=== PATIENT | female | born 1995 | race Caucasian/White ===

== ENCOUNTER 2016-03-25 08:58 | Emergency (ER) | payer OTHER ==
[~2016-03-25] VITALS: Ht 157.5 cm; Wt 68.0 kg
[~2016-03-25 08:58] MED LIST: ACYC400T PO; AUGM875T PO; DIFL150T PO; VITA-13 PO
[2016-03-25 09:02] VITALS: BP 108/69; PULSE 88; RESP 16; TEMP 99.7; O2SAT 98
[2016-03-25] MEDS ORDERED: SODIUM CHLORIDE 0.9% FLUSH 5 ML FLUSH IVF PRN (09:15)
[2016-03-25] MEDS ORDERED: SODIUM CHLOR 0.9% 1000 ML INJ 1,000 ML IV SCH (09:15)
[2016-03-25 09:17] VITALS: BP 135/61; PULSE 84; RESP 20; TEMP 98.8; O2SAT 99
[2016-03-25 09:46] LABS: AUTOMATED NEUTROPHIL # 4.9 TH/MM3 (1.8-7.7); BASOPHIL % 0.3 % (0.0-2.0); EOSINOPHIL # 0.3 TH/MM3 (0-0.4); EOSINOPHIL % 3.4 % (0.0-4.0); HEMATOCRIT 39.8 % (35.0-46.0); HEMO FLAGS DIFF FINAL; LYMPH % 24.3 % (9.0-44.0); LYMPHOCYTE # 1.8 TH/MM3 (1.0-4.8); MEAN CELL VOLUME 81.1 FL (80.0-100.0); MEAN CORPUSCULAR HEMOGLOBIN 26.5 PG (27.0-34.0); MEAN CORPUSCULAR HGB CONC 32.7 % (32.0-36.0); MONO % 6.1 % (0.0-8.0); NEUT % 65.9 % (16.0-70.0); PLATELET COUNT 218 TH/MM3 (150-450); RED CELL DISTRIBUTION WIDTH 16.1 % (11.6-17.2); WHITE BLOOD COUNT 7.5 TH/MM3 (4.0-11.0)
[2016-03-25 09:49] LABS: BLOOD, URINE MOD (NEG); GLUCOSE,URINE NEG (NEG); KETONE, URINE NEG (NEG); MUCUS URINE FEW /lpf (OCC); NITRITE,URINE NEG (NEG); RENAL EPITHELIAL CELLS <1 /hpf; SQUAMOUS EPITHELIAL CELL URINE 46 /hpf (0-5); URINE COLOR YELLOW (YELLW/STRAW)
[2016-03-25 09:51] LABS: COMMENT (UR) CULT NOT INDICATED; CULTURE IF INDICATED CULT NOT INDICATED
[2016-03-25 10:10] LABS: ANION GAP 9 MEQ/L (5-15); AST (GOT) 12 U/L (16-38); BICARBONATE 22.7 MEQ/L (21.0-32.0); BLOOD UREA NITROGEN 5 MG/DL (7-18); CHLORIDE 104 MEQ/L (98-107); GLOMERULAR FILTRATION RATE 135 ML/MIN (>89); POTASSIUM 3.9 MEQ/L (3.5-5.1); SODIUM (NA) 136 MEQ/L (136-145)
--- NOTE | 2016-03-25 10:11 | PD ---
HPI Chief Complaint: Abdominal Pain Time Seen by Provider: 09:09 Travel History International Travel<30 days: No Contact w/Intl Traveler<30days: No Traveled to known affect area: No History of Present Illness HPI 20-year-old female states that she's been having central abdominal pain over the past couple of weeks. She came in today As it got worse. She states her last menstrual cycle was February 16. Quality pain is crampy. Severity is moderate. She denies migration of pain. She denies other significant complaints. She states that she could be but has not taken a test. PFSH Past Medical History ADHD: Yes Anxiety: Yes Depression: Yes Cancer: No Cardiovascular Problems: No Diabetes: No Diminished Hearing: No Gastrointestinal Disorders: Yes GERD: Yes Genitourinary: Yes (UTI ) Headaches: No Psychiatric: Yes (history of ADHD and Depression) Respiratory: Yes (Environmental Allergies per pt.) Immunizations Current: No Migraines: No Pancreatitis: Yes Seizures: No Ulcer: Yes ( ) ?: Unknown LMP: FEB 16 : 0 Para: 0 Miscarriage: 0 : 0 Past Surgical History Surgical History: No Previous Surgery Social History Alcohol Use: Yes Tobacco Use: No Substance Use: Yes (Marijuana) Allergies-Medications (Allergen,Severity, Reaction): Coded Allergies: No Known Allergies (Unverified , 07/31/15) Per [facility] Pharmacist. Reported Meds & Prescriptions Reported Meds & Active Scripts Active Review of Systems Except as stated in HPI: all other systems reviewed are Neg Physical Exam Narrative GENERAL: Well-nourished, well-developed patient. Well-appearing SKIN: Warm and dry. HEAD: Normocephalic and atraumatic. EYES: No injection or drainage. ENT: No nasal drainage noted. NECK: Supple, trachea midline. CARDIOVASCULAR: Regular rate and rhythm RESPIRATORY: No increased effort. No accessory muscle use. GASTROINTESTINAL: Abdomen soft, mild tenderness diffusely, nondistended. NEUROLOGICAL: Awake and alert. Motor and sensory grossly within normal limits. Normal speech. Data Data Last Documented VS Vital Signs Date Time Temp Pulse Resp B/P Pulse Ox O2 Delivery O2 Flow Rate FiO2 03/25/16 09:17 98.8 84 20 135/61 99 03/25/16 09:02 Room Air Orders Beta Hcg (Quant/Titer) (03/25/16 09:15) Complete Blood Count With Diff (1/25/17 09:15) Comprehensive Metabolic Panel (03/25/16 09:15) Lipase (03/25/16 09:15) Urinalysis - C+S If Indicated (03/25/16 09:15) Iv Access Insert/Monitor (03/25/16 09:15) Ecg Monitoring (03/25/16 09:15) Oximetry (03/25/16 09:15) Sodium Chlor 0.9% 1000 Ml Inj (Ns 1000 M (03/25/16 09:15) Sodium Chloride 0.9% Flush (Ns Flush) (03/25/16 09:15) Ed Urine Pregnancytest Poc (03/25/16 09:15) Complete Rh (03/25/16 09:15) Us Pelvis (Ques Preg/Ectopic) (03/25/16 ) Labs Laboratory Tests Test 03/25/16 03/25/16 09:29 09:32 Urine Color YELLOW Urine Turbidity HAZY Urine pH 8.0 Urine Specific [place] 1.018 Urine Protein TRACE mg/dL Urine Glucose (UA) NEG mg/dL Urine Ketones NEG mg/dL Urine Occult Blood MOD Urine Nitrite NEG Urine Bilirubin NEG Urine Urobilinogen LESS THAN 2.0 MG/DL Urine Leukocyte Esterase NEG Urine RBC 2 /hpf Urine WBC 5 /hpf Urine Squamous Epithelial 46 /hpf Cells Urine Renal Epithelial Cells <1 /hpf Urine Mucus FEW /lpf Microscopic Urinalysis Comment CULT NOT INDICATED White Blood Count 7.5 TH/MM3 Red Blood Count 4.90 MIL/MM3 Hemoglobin 13.0 GM/DL Hematocrit 39.8 % Mean Corpuscular Volume 81.1 FL Mean Corpuscular Hemoglobin 26.5 PG Mean Corpuscular Hemoglobin 32.7 % Concent Red Cell Distribution Width 16.1 % Platelet Count 218 TH/MM3 Mean Platelet Volume 11.0 FL Neutrophils (%) (Auto) 65.9 % Lymphocytes (%) (Auto) 24.3 % Monocytes (%) (Auto) 6.1 % Eosinophils (%) (Auto) 3.4 % Basophils (%) (Auto) 0.3 % Neutrophils # (Auto) 4.9 TH/MM3 Lymphocytes # (Auto) 1.8 TH/MM3 Monocytes # (Auto) 0.5 TH/MM3 Eosinophils # (Auto) 0.3 TH/MM3 Basophils # (Auto) 0.0 TH/MM3 CBC Comment DIFF FINAL Differential Comment Sodium Level 136 MEQ/L Potassium Level 3.9 MEQ/L Chloride Level 104 MEQ/L Carbon Dioxide Level 22.7 MEQ/L Anion Gap 9 MEQ/L Blood Urea Nitrogen 5 MG/DL Creatinine 0.57 MG/DL Estimat Glomerular Filtration 135 ML/MIN Rate Random Glucose 86 MG/DL Calcium Level 8.6 MG/DL Total Bilirubin 0.7 MG/DL Aspartate Amino Transf 12 U/L (AST/SGOT) Alanine Aminotransferase 15 U/L (ALT/SGPT) Alkaline Phosphatase 61 U/L Total Protein 7.3 GM/DL Albumin 3.4 GM/DL Lipase 154 U/L Human Chorionic Gonadotropin, 72012 MIU/ML Quant Blood Type A POSITIVE Rho(D) Type POSITIVE MDM Medical Decision Making Medical Screen Exam Complete: Yes Emergency Medical Condition: Yes Medical Record Reviewed: Yes (past history confirmed) Interpretation(s) Rh is A+ CBC & BMP Diagram 03/25/16 09:32 Last 24 hours Impressions Pelvis Ultrasound 03/25/16 0000 Signed Impressions: Service Date/Time: Friday, March 25, 2016 11:12 - CONCLUSION: Apparent intrauterine gestational sac with yolk sac without pole measuring measuring 5 weeks 4 days. No free fluid normal ovaries. 7-10 day followup in the appropriate clinical situation recommended with possibility of blighted ovum not excludable Minh Barnard MD ua no signs of infection Differential Diagnosis Ectopic, stone, cyst, gastroenteritis... Narrative Course Will check blood work, urinalysis, and determine imaging after test Given positive beta will proceed with pelvic ultrasound patient updated and given copy of ultrasound report for follow-up.Patient denies any new complaints and states that they are feeling better. Patient happy with care, all questions answered. Patient knows that follow up is incumbent on them and to return to the emergency room immediately if new or worsening symptoms develop. Patient given strict return precautions, vitals reviewed and are normal, agrees to further workup as an outpatient. Diagnosis Primary Impression: Abdominal pain during Qualified Code: O26.891 - Abdominal pain during , first trimester Patient Instructions: General Instructions Additional Instructions: return as needed, follow with ob within one week, tylenol as needed Med/Other Pt SpecificInfo: No Change to Meds Disposition: 01 DISCHARGE HOME Condition: Stable Rosa Elena Will MD Mar 25, 2016 10:11
[2016-03-25 10:28] LABS: ALKALINE PHOSPHATASE 61 U/L (45-117); ALT (GPT) 15 U/L (9-42); BETA HCG QUANT 15175 MIU/ML (0-5); TOTAL BILIRUBIN ADULT 0.7 MG/DL (0.2-1.0)
--- NOTE | 2016-03-25 11:40 | RADRPT ---
EXAM DATE/TIME: 03/25/2016 11:12 [place] COMPARISON: No previous studies available for comparison. INDICATIONS : Pelvic pain. LAB(S): Beta-hC,175 MEDICAL HISTORY : . SURGICAL HISTORY : None. ENCOUNTER: Initial ACUITY: 2 weeks PAIN SCORE: 3/10 LOCATION: Bilateral pelvis MEASUREMENTS: UTERUS: 11.0 x 4.8 x 6.5 cm ENDOMETRIAL STRIPE: 19 mm RIGHT OVARY: 2.8 x 1.6 x 1.9 cm LEFT OVARY: 2.8 x 1.7 x 2.1 cm FINDINGS: There is a cystic area in the endometrium with an apparent young sac gestational age approximately 5 weeks 4 days and no pole is visualized. CM performed transabdominally with the patient refusing transvaginal study. Ovaries appear normal with no evidence of free fluid. CONCLUSION: Apparent intrauterine gestational sac with yolk sac without pole measuring measuring 5 weeks 4 days. No free fluid normal ovaries. 7-10 day followup in the appropriate clinical situation recommend ed with possibility of blighted ovum not excludable Minh Barnard MD on March 25, 2016 at 11:36 Board Certified Radiologist. This report was verified electronically.
== END 2016-03-25 13:09 | disposition home or self-care (01) ==
LOC: NEPE 08:58
DX: O26.891 Other specified pregnancy related conditions, first trimester (principal); R10.9 Unspecified abdominal pain
CPT/HCPCS: 76700; 80053; 81001; 83690; 84702; 84703; 85025; 86901; 99284; J7030

== ENCOUNTER 2016-09-25 10:20 | Emergency (ER) | payer OTHER ==
--- NOTE | 2016-09-25 11:23 | PD ---
HPI Chief Complaint 20-year-old primigravida at 31-4/7 weeks' gestation who presents with dizziness. Patient states that over the past couple of weeks she has had problems with feeling dizzy when she changes position from sitting to standing. She denies any syncopal episodes. She has been having some problems with diarrhea once daily for a couple of weeks. 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 Also currently under treatment for UTI on Keflex now for 4 days. She states her symptoms related to her UTI are improved. She denies any leakage of fluid, bleeding or contractions. She reports good movement. Date Seen: Sep 25, 2016 Time Seen: 11:00 Travel History International Travel<30 Days: No Contact w/Intl Traveler<30Days: No Known Affected Area: No History of Present Illness Para: 0 : 1 Miscarriage: 0 : 0 History Past Medical History Narrative Medical History of HSV History of depression Past Surgical History Surgical History: No Previous Surgery Family History Family History: Negative Social History Alcohol Use: No Tobacco Use: No Substance Abuse: Yes (THC positive) Allergies-Medications (Allergen,Severity, Reaction): Coded Allergies: No Known Allergies (Unverified , 07/31/15) Per [facility] Pharmacist. Review of Systems Except as stated in HPI: all other systems reviewed are Neg Physical Exam Narrative GENERAL: Well-nourished, well-developed patient. SKIN: Warm and dry. HEAD: Normocephalic and atraumatic. EYES: No scleral icterus. No injection or drainage. ENT: No nasal drainage noted. Mucous membranes pink. Airway patent. NECK: Supple, trachea midline. No JVD. CARDIOVASCULAR: Regular rate and rhythm without murmurs, gallops, or rubs. RESPIRATORY: Breath sounds equal bilaterally. No accessory muscle use. ABDOMEN/GI: Abdomen soft, non-tender, bowel sounds present, no rebound, no guarding Gravid to [-] weeks size Fundal Height: [-31] GENITOURINARY: External Genitalia: intact and normal in appearance Membranes: [intact ] Uterine Contractions: [No-] FHT's: Category: [-1] Baseline: [-] Reactive: [Yes-] Variability: [-] Decels: [-] EXTREMITIES: No cyanosis or edema. BACK: Nontender without obvious deformity. No CVA tenderness. NEUROLOGICAL: Awake and alert. Motor and sensory grossly within normal limits. Five out of 5 muscle strength in all muscle groups. Normal speech. Data Data Orders Vital Signs (Adult) .ON ADMISSION (09/25/16 11:03) ^ Labor Status (09/25/16 11:03) ^ Hydration (09/25/16 11:03) MDM Medical Record Reviewed: Yes Narrative Course / MDM Assessment: 31 week intrauterine with dizziness secondary to relative chronic dehydration Plan: Oral hydration was discussed with the patient. Recommend she continue her Keflex as ordered. Follow-up is scheduled with Dr. Charles. Diagnosis Diagnosis: Primary Impression: 31 weeks gestation of Disposition: DISCHARGE HOME Condition: Good Marc Orlando MD Sep 25, 2016 11:23
== END 2016-09-25 11:32 | disposition home or self-care (01) ==
LOC: HOBED 10:20
DX: O99.283 Endocrine, nutritional and metabolic diseases complicating pregnancy, third trimester (principal); E86.0 Dehydration; Z3A.31 31 weeks gestation of pregnancy
CPT/HCPCS: 99283

== ENCOUNTER 2016-10-14 19:50 | Emergency (ER) | payer OTHER ==
[2016-10-14] VITALS (28 sets, daily range): BP systolic 101; BP diastolic 64; PULSE 84–109
[2016-10-14] MEDS ORDERED: LACTATED RINGER'S 1000 ML INJ 1,000 ML IV SCH (20:37)
--- NOTE | 2016-10-14 20:45 | PD ---
HPI Chief Complaint Pelvic pressure and low back pain Date Seen: Oct 14, 2016 Travel History International Travel<30 Days: No Contact w/Intl Traveler<30Days: No Known Affected Area: No History of Present Illness HPI Patient is a 20-year-old black female at 34 weeks 2 days who is followed by Dr. Charles for care. She states that for the last 3-4 hours she' s had increasing pelvic pressure and low back pain. She denies bleeding or leakage of fluid. heart rate tracing is reactive. She is nick every 2 minutes Para: 0 : 1 History Social History Alcohol Use: No Tobacco Use: No Substance Abuse: No Allergies-Medications (Allergen,Severity, Reaction): Coded Allergies: No Known Allergies (Unverified , 07/31/15) Per [facility] Pharmacist. Review of Systems General / Constitutional: No: Fever, Weight Gain, Chills, Other Eyes: No: Diploplia, Blurred Vision, Visual changes, Pain, Photophobia HENT: No: Headaches, Vertigo, Lightheadedness Cardiovascular: No: Irregular Rhythm, Chest Pain or Discomfort, Palpitations, Tachycardia, Syncope, Varicosities, Edema, Cyanosis Respiratory: No: Cough, Short of Breath, Other Gastrointestinal: Abdominal Pain, No: Nausea, Vomiting, Diarrhea Genitourinary: No: Decreased Urinary Output, Oliguria Musculoskeletal: No: Limited ROM, Weakness, Cramping, Edema, Pain Skin: No Rash, No Itching, No Dryness, No Lumps, No Change in Pigmentation, No Change in Nails, No Alopecia, No Lesions Neurologic: No: Weakness, Dizziness, Syncope, Focal Abnormalities, Coordination Problem, Headache, Slurred Speech, Seizures Psychiatric: No: Depression, Suicidal Ideations, Homicidal Ideation Endocrine: No: Heat Intolerance, Cold Intolerance, Polydipsia, Polyuria, Other Physical Exam Narrative GENERAL: Well-nourished, well-developed patient. SKIN: Warm and dry. HEAD: Normocephalic and atraumatic. EYES: No scleral icterus. No injection or drainage. ENT: No nasal drainage noted. Mucous membranes pink. Airway patent. NECK: Supple, trachea midline. No JVD. CARDIOVASCULAR: Regular rate and rhythm without murmurs, gallops, or rubs. RESPIRATORY: Breath sounds equal bilaterally. No accessory muscle use. BREASTS: Bilateral exam showed no masses , no retractions, no nipple discharge. ABDOMEN/GI: Abdomen soft, non-tender, bowel sounds present, no rebound, no guarding Gravid to [34-] weeks size Fundal Height: [-34] GENITOURINARY: External Genitalia: intact and normal in appearance BUS glands: [-] Cervix: [-Closed Dilatation: [-Closed] Effacement: [-] Thick Station: [-3 posterior] Membranes: [intact ] Uterine Contractions: [q 2 min-] FHT's: Category: [1-] Baseline: [-133] Reactive: [yes-] Variability: [mod-] Decels: [none-] EXTREMITIES: No cyanosis or edema. BACK: Nontender without obvious deformity. No CVA tenderness. NEUROLOGICAL: Awake and alert. Motor and sensory grossly within normal limits. Five out of 5 muscle strength in all muscle groups. Normal speech. Data Data Orders Vital Signs (Adult) .ON ADMISSION (10/14/16 20:37) ^ Labor Status (10/14/16 20:37) Lactated Ringer's 1000 Ml Inj (Lr 1000 M (10/14/16 20:37) Terbutaline Inj (Brethine Inj) (10/14/16 20:45) Fentanyl Inj (Fentanyl Inj) (10/14/16 20:45) Labs Urinalysis showed trace leukocytes NEGATIVE on dipstick MDM Interpretation(s) Patient is a 20-year-old black female at 34 weeks presents planning of her 3 hours pelvic pressure and back low back pain. Patient heart rate tracing is reactive and she is nick every 2 minutes. Urine dip sticks essentially negative, cervix is closed posterior. Plan to of [place] and the OB ED with IV fluid, subcutaneous terbutaline, and a shot of fentanyl IV. I would anticipate this will stop her contractions significantly if not completely. However if she continues to contract she possibly could be a candidate for magnesium sulfate IV if contractions are resistant Plan Plan IV fluid 1 L of LR, fentanyl 50 g IV, subcutaneous terbutaline 0.25 mg given as 1 or more shots depending on the need, and we'll evaluate the effectiveness of that therapy and if needed because of further contractions higher level of to[place] as will be entertained Diagnosis Diagnosis: Primary Impression: 34 weeks gestation of Additional Impression: Uterine contractions during Disposition: DISCHARGE HOME Condition: Stable Blade Berrios II, MD Oct 14, 2016 20:45
[2016-10-14] MEDS: TERBUTALINE INJ 1 MG/ML AMP SQ PRN ×2 (21:03→22:13)
== END 2016-10-14 23:18 | disposition home or self-care (01) ==
LOC: HOBED 19:50
DX: O26.893 Other specified pregnancy related conditions, third trimester (principal); R10.2 Pelvic and perineal pain; M54.5 Low back pain; Z3A.34 34 weeks gestation of pregnancy
CPT/HCPCS: 96361; 96372; 96374; 99284; J3010; J3105; J7120

== ENCOUNTER 2016-11-23 19:47 | Inpatient (IN) | payer OTHER ==
[~2016-11-23] VITALS: Ht 157.5 cm; Wt 83.0 kg
[2016-11-23] MEDS ORDERED: ACYC400T PO (20:19)
[2016-11-23] MEDS ORDERED: PREN1CAP28 PO (20:19)
[2016-11-23 20:22] VITALS: BP 123/74; PULSE 88
[2016-11-23 20:30] VITALS: RESP 18; TEMP 97.8
[2016-11-23] MEDS ORDERED: SODIUM CHLORIDE 0.9% FLUSH 10 ML FLUSH IV FLUSH PRN (20:30)
[2016-11-23] MEDS ORDERED: LIDOCAINE HCL 1% 50 ML VIAL I-DERMAL PRN (20:30)
[2016-11-23] MEDS ORDERED: NS 500 ML BOLUS IV PRN (20:30)
[2016-11-23] MEDS ORDERED: DINOPROSTONE 10 MG INSERT-LEAVE FOR 12 HOURS VAGINAL ONE (20:30)
[2016-11-23] MEDS ORDERED: LIDOCAINE HCL 1% 50 ML VIAL INFIL PRN (20:30)
[2016-11-23] MEDS ORDERED: CITRIC ACID-SODIUM CITRATE LIQ 30 ML UDC PO SCH (20:30)
[2016-11-23] MEDS ORDERED: MINERAL OIL 10 ML VIAL TOPICAL PRN (20:30)
[2016-11-23] MEDS ORDERED: NS 1000 ML IV PRN (20:30)
[2016-11-23] MEDS ORDERED: ONDANSETRON HCL 4 MG/2 ML VIAL IV PRN (20:30)
[2016-11-23] MEDS ORDERED: OXYTOCIN 30 UNITS 500ML PREMIX IV ONE (20:30)
[2016-11-23] MEDS ORDERED: LACTATED RINGER'S 1000 ML BOLUS IV PRN (20:30)
[2016-11-23] MEDS ORDERED: LACTATED RINGER'S 1000 ML INJ 1,000 ML IV SCH (20:30)
[2016-11-23] MEDS ORDERED: ZOLPIDEM TARTRATE 10 MG TAB PO PRN (20:30)
[2016-11-23] MEDS ORDERED: PENICILLIN G POT 5,000,000 UNITS/NS 100 ML (Mini-Bag Plus) IV ONE ×2 (21:00)
[2016-11-23 21:48] LABS: AUTOMATED NEUTROPHIL # 6.6 TH/MM3 (1.8-7.7); BASOPHIL % 0.1 % (0.0-2.0); EOSINOPHIL # 0.1 TH/MM3 (0-0.4); EOSINOPHIL % 0.8 % (0.0-4.0); HEMATOCRIT 30.4 % (35.0-46.0); HEMO FLAGS DIFF FINAL; LYMPH % 25.6 % (9.0-44.0); LYMPHOCYTE # 2.6 TH/MM3 (1.0-4.8); MEAN CELL VOLUME 74.8 FL (80.0-100.0); MEAN CORPUSCULAR HEMOGLOBIN 23.3 PG (27.0-34.0); MEAN CORPUSCULAR HGB CONC 31.1 % (32.0-36.0); MONO % 7.2 % (0.0-8.0); NEUT % 66.3 % (16.0-70.0); PLATELET COUNT 227 TH/MM3 (150-450); RED BLOOD COUNT 4.07 MIL/MM3 (4.00-5.30); RED CELL DISTRIBUTION WIDTH 17.1 % (11.6-17.2)
[2016-11-23 21:52] LABS: BACTERIA, URINE FEW /hpf; BLOOD, URINE TRACE (NEG); CALCIUM OXALATE CRYSTALS,URINE MOD /hpf; COMMENT (UR) CULTURE INDICATED; CULTURE IF INDICATED CULTURE INDICATED; GLUCOSE,URINE NEG (NEG); KETONE, URINE NEG (NEG); MUCUS URINE FEW /lpf (OCC); NITRITE,URINE NEG (NEG); SQUAMOUS EPITHELIAL CELL URINE 28 /hpf (0-5); TRANSITIONAL EPI CELLS, URINE 2 /hpf; URINE COLOR YELLOW (YELLW/STRAW)
[2016-11-24] VITALS (68 sets, daily range): BP systolic 88–136; BP diastolic 41–98; PULSE 63–131; RESP 17–20; TEMP 97.9–98.6; O2SAT 97–100
[2016-11-24] MEDS ORDERED: PENICILLIN G POT 2,500,000 UNITS/NS 100 ML IV SCH ×2 (01:00)
[2016-11-24] MEDS ORDERED: fentaNYL 2MCG-BUPIV 0.125% INJ 100 ML ONE (04:47)
[2016-11-24] MEDS ORDERED: ePHEDrine/NS 25 MG/5 ML SYR IV PRN ×2 (05:25→15:00)
[2016-11-24] MEDS ORDERED: NO SYSTEM NARCOTICS PRN ×2 (05:25→15:00)
[2016-11-24] MEDS ORDERED: fentaNYL 2MCG-BUPIV 0.125% 100 ML EPIDURAL SCH ×3 (05:25→15:45)
[2016-11-24] MEDS ORDERED: DO NOT ADMINISTER ANTICOAGULANTS PRN ×2 (05:25→15:00)
[2016-11-24] MEDS ORDERED: ePHEDrine/NS 25 MG/5 ML SYR ONE (05:47)
[2016-11-24] MEDS ORDERED: OXYTOCIN 30 UNITS-500ML PREMIX 500 ML ONE (05:52)
--- NOTE | 2016-11-24 08:24 | HHI.HP ---
HPI Chief Complaint elective iol Date Seen: Nov 24, 2016 Travel History International Travel<30 Days: No Contact w/Intl Traveler<30Days: No Known Affected Area: No History of Present Illness HPI 20 yo G1 with iup at 40 wk here for elective iol. She has had cervidil overnight and is currently 7-8/90-0. Sh eis comfortable with epidural in place. Good FM. PNC c/b first trimester bleed with yovanny, Depression, MJ use, h/o hsv with no outbreak for over a year and a UTI with neg natanael. Weeks Gestation: 40 Para: 0 : 1 History Past Medical History Narrative Medical Depression, hsv, MJ use, elevated prolactin Obstetric History Obstetric History g1 Past Surgical History Surgical History: No Previous Surgery Family History Family History: Negative Social History Alcohol Use: No Tobacco Use: No Substance Abuse: No Allergies-Medications (Allergen,Severity, Reaction): Coded Allergies: No Known Allergies (Unverified , 10/14/16) Per [facility] Pharmacist. Home Meds Reported Medications Acyclovir (Acyclovir) 400 Mg Tab, 400 MG PO BID Y for DAILY, TAB 0 Refills 11/23/16 Mv & Min W/Fe Fumarat ( Multi + Dha 27-0.8-250 mg) 27 Mg Iron- 800 Mcg-250 Mg Cap, 1 TAB PO DAILY 11/23/16 Review of Systems General / Constitutional: No: Fever, Weight Gain, Chills, Other Eyes: No: Diploplia, Blurred Vision, Visual changes, Pain, Photophobia HENT: No: Headaches, Vertigo, Lightheadedness Cardiovascular: No: Irregular Rhythm, Chest Pain or Discomfort, Palpitations, Tachycardia, Syncope, Varicosities, Edema, Cyanosis Respiratory: No: Cough, Short of Breath, Other Gastrointestinal: No: Nausea, Vomiting, Diarrhea Genitourinary: No: Decreased Urinary Output, Oliguria Musculoskeletal: No: Limited ROM, Weakness, Cramping, Edema, Pain Skin: No Rash, No Itching, No Dryness, No Lumps, No Change in Pigmentation, No Change in Nails, No Alopecia, No Lesions Neurologic: No: Weakness, Dizziness, Syncope, Focal Abnormalities, Coordination Problem, Headache, Slurred Speech, Seizures Psychiatric: No: Depression, Suicidal Ideations, Homicidal Ideation Endocrine: No: Heat Intolerance, Cold Intolerance, Polydipsia, Polyuria, Other Physical Exam Narrative GENERAL: Well-nourished, well-developed patient. SKIN: Warm and dry. HEAD: Normocephalic and atraumatic. EYES: No scleral icterus. No injection or drainage. ENT: No nasal drainage noted. Mucous membranes pink. Airway patent. NECK: Supple, trachea midline. No JVD. CARDIOVASCULAR: Regular rate and rhythm without murmurs, gallops, or rubs. RESPIRATORY: Breath sounds equal bilaterally. No accessory muscle use. ABDOMEN/GI: Abdomen soft, non-tender, bowel sounds present, no rebound, no guarding Gravid to 40weeks size GENITOURINARY: External Genitalia: intact and normal in appearance BUS glands: [-] Cervix: 7-8/90/0 AROM clear Presentation: ceph Membranes: [intact , arom performed Uterine Contractions:q2-3min FHT's: Category:II, variable decelerations Baseline: 140 Reactive:n Variability: min-mod Decels variable EXTREMITIES: No cyanosis or edema. BACK: Nontender without obvious deformity. No CVA tenderness. NEUROLOGICAL: Awake and alert. Motor and sensory grossly within normal limits. Five out of 5 muscle strength in all muscle groups. Normal speech. Caprini VTE Risk Assessment Caprini VTE Risk Assessment: No/Low Risk (score <= 1) Caprini Risk Assessment Model Point Value = 1 Point Value = 2 Point Value = 3 Point Value = 5 Age 41-60 Minor surgery BMI > 25 kg/m2 Swollen legs Varicose veins or History of unexplained or recurrent spontaneous Oral contraceptives or hormone replacement Sepsis (< 1 month) Serious lung disease, including pneumonia (< 1 month) Abnormal pulmonary function Acute myocardial infarction Congestive heart failure (< 1 month) History of inflammatory bowel disease Medical patient at bed rest Age 61-74 Arthroscopic surgery Major open surgery (> 45 min) Laparoscopic surgery (> 45 min) Malignancy Confined to bed (> 72 hours) Immobilizing plaster cast Central venous access Age >= 75 History of VTE Family history of VTE Factor V Leiden Prothrombin [id number] Lupus anticoagulant Anticardiolipin antibodies Elevated serum homocysteine Heparin-induced thrombocytopenia Other congenital or acquired thrombophilia Stroke (< 1 month) Elective arthroplasty Hip, pelvis, or leg fracture Acute spinal cord injury (< 1 month) Prophylaxis Regimen Total Risk Factor Score Risk Level Prophylaxis Regimen 0-1 Low Early ambulation 2 Moderate Order ONE of the following: *Sequential Compression Device (SCD) *Heparin 5000 units SQ BID 3-4 Higher Order ONE of the following medications: *Heparin 5000 units SQ TID *Enoxaparin/Lovenox 40 mg SQ daily (WT < 150 kg, CrCl > 30 mL/min) *Enoxaparin/Lovenox 30 mg SQ daily (WT < 150 kg, CrCl > 10-29 mL/min) *Enoxaparin/Lovenox 30 mg SQ BID (WT < 150 kg, CrCl > 30 mL/min) AND/OR *Sequential Compression Device (SCD) 5 or more Highest Order ONE of the following medications: *Heparin 5000 units SQ TID (Preferred with Epidurals) *Enoxaparin/Lovenox 40 mg SQ daily (WT < 150 kg, CrCl > 30 mL/min) *Enoxaparin/Lovenox 30 mg SQ daily (WT < 150 kg, CrCl > 10-29 mL/min) *Enoxaparin/Lovenox 30 mg SQ BID (WT < 150 kg, CrCl > 30 mL/min) AND *Sequential Compression Device (SCD) Data Data Vital Signs Reviewed: Yes Orders Orders Admit To Inpatient (11/23/16 ) Diet Regular Basic (11/23/16 Dinner) Diet Liquid (11/24/16 Breakfast) Activity Oob Ad Brooke (11/23/16 20:12) ^ Labor Induction (11/23/16 20:12) ^ Vaginal Insert (11/23/16 20:12) ^ Vaginal Lavage (11/23/16 20:12) Heart (11/23/16 20:12) Admit To Inpatient (11/23/16 ) Code Status (11/23/16 20:12) Vital Signs (Adult) .Per protocol (11/23/16 20:12) Activity Oob Ad Brooke (11/23/16 20:12) Heart (11/23/16 20:12) Amnioinfusion (11/23/16 20:12) Urinary Catheter Management .ONCE (11/23/16 20:12) Complete Blood Count With Diff (11/23/16 20:12) Hold Clot (11/23/16 20:12) Abo/Rh Blood Type (11/23/16 20:12) Urinalysis - C+S If Indicated (11/23/16 20:12) Resp Oxygen Non Rebreathe Mask (11/23/16 ) ^ Epidural / Intrathecal Infus (11/23/16 20:12) Dinoprostone Vag Insert (Cervidil Vag In (11/23/16 20:30) Lactated Ringer's 1000 Ml Inj (Lr 1000 M (11/23/16 20:30) Sodium Chloride 0.9% Flush (Ns Flush) (11/23/16 20:30) Zolpidem (Ambien) (11/23/16 20:30) Lactated Ringer's 1000 Ml Inj (Lr 1000 M (11/23/16 20:30) Sodium Chlorid 0.9% 500 Ml Inj (Ns 500 M (11/23/16 20:30) Sodium Chlor 0.9% 1000 Ml Inj (Ns 1000 M (11/23/16 20:30) Lidocaine 1% Inj (50 Ml) (Xylocaine 1% I (11/23/16 20:30) Citric Acid-Sodium Citrate Liq (Bicitra (11/23/16 20:30) Ondansetron Inj (Zofran Inj) (11/23/16 20:30) Fentanyl Inj (Fentanyl Inj) (11/23/16 20:30) Fentanyl Inj (Fentanyl Inj) (11/23/16 20:30) Penicillin G Potassium Inj (Pfizerpen-G (11/23/16 21:00) Penicillin G Potassium Inj (Pfizerpen-G (11/24/16 01:00) Oxytocin 30 Units-500ml Premix (Pitocin (11/23/16 20:30) Lidocaine 1% Inj (50 Ml) (Xylocaine 1% I (11/23/16 20:30) Light Mineral Oil (Muri-Lube Oil) (11/23/16 20:30) Urine Culture (11/23/16 20:45) Fentanyl 2mcg-Bupiv 0.125% Inj (Fentanyl (11/24/16 04:47) Ephedrine/Ns 25 Mg/5 Ml Syr (Ephedrine/N (11/24/16 05:47) Oxytocin 30 Units-500ml Premix (Pitocin (11/24/16 05:52) Group B Strep: Positive Labs Laboratory Tests Test 11/23/16 20:45 White Blood Count 10.0 Red Blood Count 4.07 Hemoglobin 9.5 Hematocrit 30.4 Mean Corpuscular Volume 74.8 Mean Corpuscular Hemoglobin 23.3 Mean Corpuscular Hemoglobin Concent 31.1 Red Cell Distribution Width 17.1 Platelet Count 227 Mean Platelet Volume 11.4 Neutrophils (%) (Auto) 66.3 Lymphocytes (%) (Auto) 25.6 Monocytes (%) (Auto) 7.2 Eosinophils (%) (Auto) 0.8 Basophils (%) (Auto) 0.1 Neutrophils # (Auto) 6.6 Lymphocytes # (Auto) 2.6 Monocytes # (Auto) 0.7 Eosinophils # (Auto) 0.1 Basophils # (Auto) 0.0 CBC Comment DIFF FINAL Differential Comment Urine Color YELLOW Urine Turbidity HAZY Urine pH 6.0 Urine Specific [place] 1.019 Urine Protein 30 Urine Glucose (UA) NEG Urine Ketones NEG Urine Occult Blood TRACE Urine Nitrite NEG Urine Bilirubin NEG Urine Urobilinogen 2.0 Urine Leukocyte Esterase LARGE Urine RBC 29 Urine WBC 39 Urine Squamous Epithelial Cells 28 Urine Transitional Epithelial Cells 2 Urine Calcium Oxalate Crystals MOD Urine Amorphous Sediment RARE Urine Bacteria FEW Urine Mucus FEW Microscopic Urinalysis Comment CULTURE INDICATED Date/Time Source Procedure Growth Status 11/23/16 20:45 Urine Clean Catch Urine Culture Pending Received Assessment/Plan Problem List: (1) Admitted to labor and delivery ICD Codes: Z78.9 - Other specified health status Status: Acute (2) HSV infection ICD Codes: B00.9 - Herpesviral infection, unspecified Status: Chronic (3) GBS (group B Streptococcus carrier), +RV culture, currently ICD Codes: O99.820 - Streptococcus B carrier state complicating Status: Acute (4) Marijuana smoker ICD Codes: F12.20 - Cannabis dependence, uncomplicated Status: Chronic (5) Depressed ICD Codes: F32.9 - Depressed Status: Chronic Qualifiers: Assessment and Plan 20 yo G1 with iup at 40 wk 1) IOL- s/p cervidil,. AROM clear this check, Cat II, if she does not progress in next hour, will need CD for Cat II tracing. 2) Depression- no current medications; per [facility] review pt has h/o self mutilation and intentional drug overdose in 2009. Will start antidepressants . Will need pp case management consult 3) HSV- no outbreaks during , on valtrex suppression 4) GBS + on pcn 5) fetus ceph, Cat II Mary Ellen Charles MD Nov 24, 2016 08:24
[2016-11-24] MEDS ORDERED: EPIDURAL-NALOXONE HCL 0.4 MG/ML AMP IV PUSH PRN ×2 (11:45→15:00)
[2016-11-24] MEDS ORDERED: EPIDURAL-NO SYSTEMIC NARCOTICS PRN ×2 (11:45→15:00)
[2016-11-24] MEDS ORDERED: EPIDURAL-DO NOT ADMINISTER ANTICOAGULANTS PRN ×2 (11:45→15:00)
[2016-11-24] MEDS ORDERED: ceFAZolin 2 GM PREMIX 50 ML IV SCH (11:45)
[2016-11-24] MEDS ORDERED: EPIDURAL-DIPHENHYDRAMINE HCL 50 MG CAP PO PRN ×2 (11:45→15:00)
[2016-11-24] MEDS ORDERED: EPIDURAL-DIPHENHYDRAMINE HCL 50 MG/ML VIAL IV PUSH PRN ×2 (11:45→15:00)
[2016-11-24 11:59] LABS: BLOOD GAS BASE EXCESS -3.8 mmol/L (-2-2); BLOOD GAS O2 HGB SATURATION 20 % (90-100); CORD BLOOD GAS HCO3 21 mmol/L (21-29); CORD BLOOD GAS PCO2 39 mmHG (34-78); CORD BLOOD GAS PH 7.35 (7.14-7.42); CORD BLOOD GAS PO2 15 mmHG (3.0-40.0); DRAW SITE CORD BLOOD; STAT NO
[2016-11-24] MEDS ORDERED: MORPHINE SULFATE PF 5 MG/10 ML VIAL ONE ×2 (12:00)
[2016-11-24] MEDS ORDERED: ONDANSETRON HCL 4 MG/2 ML VIAL IV PUSH ONE (12:00)
[2016-11-24] MEDS ORDERED: OXYTOCIN 10 UNIT/ML AMP IV ONE (12:00)
[2016-11-24] MEDS ORDERED: ceFAZolin INJ 1,000 MG VIAL IV ONE (12:00)
[2016-11-24] MEDS ORDERED: PHENYLEPH/NS 1000 MCG/10 ML SYR IV ONE (12:00)
[2016-11-24] MEDS ORDERED: PROPOFOL 200 MG/20 ML AMP IV ONE (12:00)
[2016-11-24] MEDS ORDERED: SODIUM CHLORIDE 0.9% FLUSH 10 ML FLUSH IV FLUSH PRN (12:15)
[2016-11-24] MEDS ORDERED: CITRIC ACID-SODIUM CITRATE LIQ 30 ML UDC PO SCH (12:15)
[2016-11-24] MEDS ORDERED: ONDANSETRON HCL 4 MG/2 ML VIAL IV PUSH PRN (12:15)
[2016-11-24] MEDS ORDERED: ACETAMINOPHEN 1000 MG/100 ML 100 ML IV ONE (12:15)
[2016-11-24] MEDS ORDERED: OXYTOCIN 30 UNITS-500ML PREMIX 500 ML IV ONE (12:15)
[2016-11-24] MEDS ORDERED: SIMETHICONE 80 MG CHEWABLE TAB PO PRN (12:15)
--- NOTE | 2016-11-24 12:19 | PD.OB.DELI ---
Procedure Note Section Procedure Pre Op Diagnosis: (1) Arrested labor (2) Anemia (3) GBS (group B Streptococcus carrier), +RV culture, currently (4) Depression (5) HSV infection (6) Marijuana smoker Post Op Diagnosis: (1) Cephalopelvic disproportion (2) Arrested labor (3) Anemia (4) Depression (5) Marijuana smoker (6) HSV infection (7) GBS (group B Streptococcus carrier), +RV culture, currently Performed by Mary Ellen Charles Procedure: Primary Low Transverse Sec Indication for delivery: malposition (ROT asynclytic), Other (arrest of descent) Previous condition: None Informed consent obtained: For anesthesia, For procedure Confirmed correct: Patient, Procedure, Site, Time-out taken Anesthesia: Epidural Medication prior to procedure: As documented in eMAR Monitoring during procedure: Blood pressure monitoring, Pulse oximetry Urinary catheter: Inserted using sterile technique, To dependent drainage, ml urine output (100) Sterile preparation: With 2% chlorexidine (Hibiclens) Position: Supine with wedge to right side, Supine with safety belt applied Operative Features Skin Incision: Pfannenstiel Uterine Incision: Low transverse w/knife / blunt ext Membranes Ruptured: Artificially, Previously, Appearance of fluid (clear) Presentation: Other (ROT, asynclytic ) Delivery date: Nov 24, 2016 Delivery time: 11:29 Delivery of infant: Uneventful Infant: Female One Minute : 8 Five Minute : 8 Weight: 3490g Status of : Viable, Cord blood, Umbilical cord, Nursery present Placenta delivered: Intact, Other (placenta intact but membranes found in uterus after mutliple sweeps with lap sponges, curettage performed) Medications: Antibiotics, Oxytocin Estimated blood loss: 600ml Procedure tolerated: Well Maternal Condition: Stable Condition: Stable Procedure in detail dictated Mary Ellen Charles MD Nov 24, 2016 12:19
--- NOTE | 2016-11-24 13:08 | MP ---
cc: MARY ELLEN CHARLES MD DATE OF SURGERY 11/24/2016 PREOPERATIVE DIAGNOSES 1. Arrest of labor. 2. Anemia. 3. GBS positive. 4. Depression. 5. HSV. 6. Marijuana use. POSTOPERATIVE DIAGNOSES 1. Cephalopelvic disproportion. 2. Arrest of labor. 3. Anemia. 4. GBS positive. 5. Depression. 6. HSV. 7. Marijuana use. PROCEDURE PERFORMED Primary low transverse section. SURGEON Mary Ellen Charles MD INDICATION The patient is a 20-year-old P0 with an intrauterine of 40 weeks who desired an elective induction of labor at term. She had induction with Cervidil and did not need any further medication; she had regular contractions on her own. She dilated fully with complete effacement but did not progress past 0 station despite 2 hours of pushing efforts. Discussed with the patient that she my have cephalopelvic disproportion, that there was minimal descent of pushing efforts and the fetus would retract back to 0 station. Additionally, some molding and caput were developing. The risks, benefits and alternatives were discussed. The family was in agreement to proceed with a section. ANESTHESIA Epidural. ESTIMATED BLOOD LOSS 600 mL. IV FLUIDS 800 mL of lactated Ringers URINE OUTPUT 100 mL. COMPLICATIONS None. COUNTS Correct x 3. SPECIMEN Cord blood, cord gas and placenta. INTRAOPERATIVE FINDINGS Viable female , Apgars 8 and 8, weight 3490 grams. Presentation ROT, asynclitic with molding and caput. Apgars of 8 and 8 at 1 minute and 5 minutes respectively. weight 3490 grams. Three-vessel cord, tubes and ovaries within normal limits bilaterally. Uterine cavity with membranes present despite multiple sweeps with laparotomy sponges. Sharp curettage and irrigation were performed. The placenta appeared to have advanced aging, intact. PROCEDURE IN DETAIL After giving informed consent, the patient was taken to the operating room where epidural was noted to be adequate. The Carter was already in place. The abdomen was prepped and draped in normal sterile fashion. A Pfannenstiel skin incision was made with a scalpel, carried down through the underlying layer of fascia with the Bovie. The fascia was incised in the midline. This incision was extended bilaterally. Maura clamps were used to elevate the superior aspect of the fascia. The rectus muscles were dissected off of the fascia with Fernandez scissors. The same was repeated inferiorly. The rectus muscles were in the midline bluntly. The peritoneum was entered bluntly. This incision was extended bluntly. The bladder blade was then inserted. Bladder flap was created with Metzenbaum scissors, further developed digitally. The bladder blade was repositioned and a low transverse uterine incision was made with a scalpel. This incision was extended bluntly. The head was suctioned into the pelvis, noted to be asynclitic. This suction was released. The head was flexed and brought up to the level of the hysterotomy. After head was at the level of the hysterotomy, fundal pressure was used to deliver the head. The rest of the body readily followed. The cord was doubly clamped and cut. The baby was bulb suctioned, handed off to the waiting pediatricians. Cord blood and cord gases were collected. Vigorous uterine massage was used to deliver the placenta. Ring forceps were used to follow the membranes. There was a large amount of membranes noted. After this, moistened laparotomy sponges were used to clear the uterine cavity. After 5-6 sweeps with moistened laparotomy sponges, there were still membranes being removed and fibrin-like material. Sharp curettage was performed. Irrigation was performed and moistened laparotomy sponges were used to clean the uterine cavity again and there was no clear debris or any membranes. The uterus was closed in two layers with #1 chromic in a running locked fashion, followed by an imbricating layer. The posterior cul-de-sac was irrigated and suctioned. The uterus was returned to the abdomen. Good tone and hemostasis was noted. The peritoneum was closed with 2-0 chromic in a running fashion. The fascia was closed with #1 Vicryl in a running fashion. The subcutaneous tissue was irrigated and suctioned. Good hemostasis was noted. The subcutaneous layer was closed with 2-0 chromic in a running fashion. The skin was closed with 3-0 Vicryl in a subcuticular fashion. Steri-Strips were placed, followed by a sterile dressing. The patient tolerated the procedure well. REMARKS The patient is an acceptable candidate for a but does have a narrow pelvis. Mary Ellen Charles MD PE/JANENE Davis: 11/24/2016/12:20 PM /12:31 PM SEMAJ
[2016-11-24] MEDS ORDERED: LACTATED RINGER'S 1000 ML INJ 1,000 ML IV SCH (17:13)
[2016-11-24] MEDS: SODIUM CHLORIDE 0.9% FLUSH 10 ML FLUSH IV FLUSH SCH (20:41)
[2016-11-24] MEDS ORDERED: OXYTOCIN 30 UNITS-500ML PREMIX 500 ML IV PRN (22:15)
[2016-11-25] VITALS (11 sets, daily range): BP systolic 98–113; BP diastolic 58–72; PULSE 69–89; RESP 18; TEMP 97.8–98.2
[2016-11-25] MEDS: IBUPROFEN 600 MG TAB PO PRN ×4 (02:40→22:55)
[2016-11-25] MEDS: oxyCODONE/ACETAMINOPHEN 5 MG/325 MG TAB PO PRN ×5 (02:40→22:55)
[2016-11-25 05:57] LABS: AUTOMATED NEUTROPHIL # 10.4 TH/MM3 (1.8-7.7); BASOPHIL % 0.2 % (0.0-2.0); EOSINOPHIL % 0.1 % (0.0-4.0); HEMATOCRIT 28.2 % (35.0-46.0); HEMO FLAGS DIFF FINAL; LYMPH % 12.2 % (9.0-44.0); LYMPHOCYTE # 1.6 TH/MM3 (1.0-4.8); MEAN CELL VOLUME 75.3 FL (80.0-100.0); MEAN CORPUSCULAR HEMOGLOBIN 23.2 PG (27.0-34.0); MEAN CORPUSCULAR HGB CONC 30.8 % (32.0-36.0); NEUT % 77.5 % (16.0-70.0); PLATELET COUNT 177 TH/MM3 (150-450); RED BLOOD COUNT 3.74 MIL/MM3 (4.00-5.30); RED CELL DISTRIBUTION WIDTH 17.6 % (11.6-17.2); WHITE BLOOD COUNT 13.4 TH/MM3 (4.0-11.0)
[2016-11-25] MEDS: SERTRALINE HCL 50 MG TAB PO SCH (09:00)
--- NOTE | 2016-11-25 11:24 | HHI.OB ---
Subjective Post Operative Day: 1 Remarks POD#1, Doing well, feels good ,no mood disturbance ,does not feel she needs Zoloft now Objective Result Diagram: 11/25/16 5389 Objective Remarks GENERAL: Well-nourished, well-developed patient. CARDIOVASCULAR: Regular rate and rhythm without murmurs, gallops, or rubs. RESPIRATORY: Breath sounds equal bilaterally. No accessory muscle use. ABDOMEN/GI: Abdomen soft, non-tender, bowel sounds present. Incision: Clean, dry and intact. Fundus: Firm, non-tender at umbilicus. GENITOURINARY: Light to moderate bleeding. EXTREMITIES: No cyanosis or edema, non-tender, without signs of DVT. Medications and IVs Current Medications Medications (Trade) Dose Ordered Sig/Cierra Route Start Time Stop Time Status Last Admin Lactated Ringer's 1,000 ml @ 100 mls/hr Q10H IV 11/24/16 17:13 11/25/16 13:12 Oxytocin 500 ml @ 100 mls/hr UNSCH X1 PRN IV 11/24/16 22:15 11/25/16 22:14 (NS Flush) 2 ml BID IV FLUSH 11/24/16 21:00 (NS Flush) 2 ml UNSCH PRN IV FLUSH 11/24/16 12:15 (Mylicon Chew) 80 mg QID PRN PO 11/24/16 12:15 (Motrin) 600 mg Q6H PRN PO 11/24/16 12:15 11/25/16 09:56 (Percocet 5-325 Mg) 1 tab Q4H PRN PO 11/24/16 12:15 11/25/16 09:56 (Percocet 5-325 Mg) 2 tab Q4H PRN PO 11/24/16 12:15 11/25/16 02:40 (Radha-Colace) 2 tab Q12H PRN PO 11/24/16 12:15 (M-M-R Ii Inj) 0.5 ml ONCE ONCE SQ 11/25/16 16:00 11/25/16 16:01 (Boostrix Inj) 0.5 ml ONCE ONCE IM 11/25/16 16:00 11/25/16 16:01 (Zofran Inj) 4 mg Q6H PRN IV PUSH 11/24/16 12:15 11/24/16 13:51 (Zoloft) 50 mg DAILY PO 11/25/16 09:00 Miscellaneous Information NO SYSTEMIC NARCOTICS TO BE GIVEN FO... UNSCH PRN .XX 11/24/16 11:45 11/25/16 11:44 (Narcan Inj) 0.4 mg UNSCH PRN IV PUSH 11/24/16 11:45 11/25/16 11:44 (Benadryl Inj) 25 mg Q6H PRN IV PUSH 11/24/16 11:45 11/25/16 11:44 (Benadryl) 50 mg Q6H PRN PO 11/24/16 11:45 11/25/16 11:44 Miscellaneous Information ALL NURSING DEPARTMENTS UNSCH PRN .XX 11/24/16 11:45 11/25/16 11:44 Assessment/Plan Problem List: (1) Admitted to labor and delivery ICD Codes: Z78.9 - Other specified health status Status: Acute (2) HSV infection ICD Codes: B00.9 - Herpesviral infection, unspecified Status: Chronic (3) GBS (group B Streptococcus carrier), +RV culture, currently ICD Codes: O99.820 - Streptococcus B carrier state complicating Status: Acute (4) Marijuana smoker ICD Codes: F12.20 - Cannabis dependence, uncomplicated Status: Chronic (5) Depressed ICD Codes: F32.9 - Depressed Status: Chronic Qualifiers: Assessment and Plan POD#1, stable ,no significant c/o.declined Zoloft, is coping well Discharge Planning Routine Attending Attestation seen by Marc Sams MD Nov 25, 2016 11:24
[2016-11-25] MEDS ORDERED: DIPHTH/TETANUS/ACEL PERTUSSIS (BOOSTER) 0.5 ML VIAL/PFS IM ONE (16:00)
[2016-11-25] MEDS ORDERED: MEASLES, MUMPS, RUBELLA VACCINE 0.5 ML VIAL SQ ONE (16:00)
[2016-11-25] MEDS: DOCUSATE SODIUM 50 MG/SENNA 8.6 MG TAB PO PRN (18:29)
[2016-11-25] MEDS: SODIUM CHLORIDE 0.9% FLUSH 10 ML FLUSH IV FLUSH SCH (21:00)
[2016-11-26] VITALS: RESP 18
[2016-11-26 01:00] VITALS: RESP 18
[2016-11-26 02:00] VITALS: RESP 18
[2016-11-26 03:00] VITALS: RESP 18
[2016-11-26] MEDS: IBUPROFEN 600 MG TAB PO PRN ×2 (07:53→14:35)
[2016-11-26] MEDS: oxyCODONE/ACETAMINOPHEN 5 MG/325 MG TAB PO PRN ×4 (07:55→21:18)
--- NOTE | 2016-11-26 07:57 | HHI.OB ---
Subjective Post Operative Day: 2 Remarks pt doing OK , waiting for pain meds, not ready for discharge Objective Vitals/I&O vss afeb Result Diagram: 11/25/16 0458 Objective Remarks GENERAL: Well-nourished, well-developed patient. CARDIOVASCULAR: Regular rate and rhythm without murmurs, gallops, or rubs. RESPIRATORY: Breath sounds equal bilaterally. No accessory muscle use. ABDOMEN/GI: Abdomen soft, non-tender, bowel sounds present. Incision: Clean, dry and intact. Fundus: Firm, non-tender at umbilicus. GENITOURINARY: Light to moderate bleeding. EXTREMITIES: No cyanosis or edema, non-tender, without signs of DVT. Medications and IVs Current Medications Medications (Trade) Dose Ordered Sig/Cierra Route Start Time Stop Time Status Last Admin (NS Flush) 2 ml BID IV FLUSH 11/24/16 21:00 (NS Flush) 2 ml UNSCH PRN IV FLUSH 11/24/16 12:15 (Mylicon Chew) 80 mg QID PRN PO 11/24/16 12:15 (Motrin) 600 mg Q6H PRN PO 11/24/16 12:15 11/25/16 22:55 (Percocet 5-325 Mg) 1 tab Q4H PRN PO 11/24/16 12:15 11/25/16 18:31 (Percocet 5-325 Mg) 2 tab Q4H PRN PO 11/24/16 12:15 11/25/16 22:55 (Radha-Colace) 2 tab Q12H PRN PO 11/24/16 12:15 11/25/16 18:29 (Zofran Inj) 4 mg Q6H PRN IV PUSH 11/24/16 12:15 11/24/16 13:51 (Zoloft) 50 mg DAILY PO 11/25/16 09:00 Assessment/Plan Problem List: (1) Admitted to labor and delivery ICD Codes: Z78.9 - Other specified health status Status: Acute (2) HSV infection ICD Codes: B00.9 - Herpesviral infection, unspecified Status: Chronic (3) GBS (group B Streptococcus carrier), +RV culture, currently ICD Codes: O99.820 - Streptococcus B carrier state complicating Status: Acute (4) Marijuana smoker ICD Codes: F12.20 - Cannabis dependence, uncomplicated Status: Chronic (5) Depressed ICD Codes: F32.9 - Depressed Status: Chronic Qualifiers: (6) delivery delivered ICD Codes: O82 - Encounter for delivery without indication Assessment and Plan POD#2, stable ,no significant c/o.declined Zoloft, is coping well Discharge Planning Routine Attending Attestation pt seen by Marti Lino MD Nov 26, 2016 07:57
[2016-11-26 08:30] VITALS: BP 98/66; PULSE 78; RESP 18; TEMP 98.2
[2016-11-26] MEDS: SERTRALINE HCL 50 MG TAB PO SCH (08:45)
[2016-11-26 20:00] VITALS: BP 107/69; PULSE 77; RESP 18; TEMP 98
[2016-11-26] MEDS: DOCUSATE SODIUM 50 MG/SENNA 8.6 MG TAB PO PRN (21:18)
[2016-11-27] MEDS: oxyCODONE/ACETAMINOPHEN 5 MG/325 MG TAB PO PRN (07:42)
[2016-11-27] MEDS: IBUPROFEN 600 MG TAB PO PRN ×2 (07:42)
[2016-11-27 08:05] VITALS: BP 119/71; PULSE 75; RESP 20; TEMP 98.3
--- NOTE | 2016-11-27 08:09 | HHI.OB ---
Subjective Post Operative Day: 3 Remarks s/p primary LTCD for arrest of descent doing well, pain well controlled, ambulating, voiding, tolerating diet Objective Vitals/I&O Vital Signs Date Time Temp Pulse Resp B/P (MAP) Pulse Ox O2 Delivery O2 Flow Rate FiO2 11/26/16 08:30 98.2 78 18 98/66 (77) Result Diagram: 11/25/16 9050 Objective Remarks GENERAL: Well-nourished, well-developed patient. CARDIOVASCULAR: Regular rate and rhythm without murmurs, gallops, or rubs. RESPIRATORY: Breath sounds equal bilaterally. No accessory muscle use. ABDOMEN/GI: Abdomen soft, non-tender, bowel sounds present. Incision: Clean, dry and intact. steri-strips in place. Fundus: Firm, non-tender at umbilicus. GENITOURINARY: Light to moderate bleeding. EXTREMITIES: No cyanosis or edema, non-tender, without signs of DVT. Medications and IVs Current Medications Medications (Trade) Dose Ordered Sig/Cierra Route Start Time Stop Time Status Last Admin (NS Flush) 2 ml BID IV FLUSH 11/24/16 21:00 (NS Flush) 2 ml UNSCH PRN IV FLUSH 11/24/16 12:15 (Mylicon Chew) 80 mg QID PRN PO 11/24/16 12:15 (Motrin) 600 mg Q6H PRN PO 11/24/16 12:15 11/27/16 07:42 (Percocet 5-325 Mg) 1 tab Q4H PRN PO 11/24/16 12:15 11/27/16 07:42 (Percocet 5-325 Mg) 2 tab Q4H PRN PO 11/24/16 12:15 11/26/16 16:28 (Radha-Colace) 2 tab Q12H PRN PO 11/24/16 12:15 11/26/16 21:18 (Zofran Inj) 4 mg Q6H PRN IV PUSH 11/24/16 12:15 11/24/16 13:51 (Zoloft) 50 mg DAILY PO 11/25/16 09:00 Assessment/Plan Problem List: (1) Admitted to labor and delivery ICD Codes: Z78.9 - Other specified health status Status: Acute (2) HSV infection ICD Codes: B00.9 - Herpesviral infection, unspecified Status: Chronic (3) GBS (group B Streptococcus carrier), +RV culture, currently ICD Codes: O99.820 - Streptococcus B carrier state complicating Status: Acute (4) Marijuana smoker ICD Codes: F12.20 - Cannabis dependence, uncomplicated Status: Chronic (5) Depressed ICD Codes: F32.9 - Depressed Status: Chronic Qualifiers: (6) delivery delivered ICD Codes: O82 - Encounter for delivery without indication Assessment and Plan POD#3, stable routine care d/c to home today office f/u 1-2 wks Discharge Planning Routine Usha Aguilar MD Nov 27, 2016 08:09
[2016-11-27] MEDS ORDERED: OXYC1TAB63 PO (08:12)
[2016-11-27] MEDS ORDERED: IBUP-232 PO (08:12)
[2016-11-27] MEDS ORDERED: SENN1TAB PO (08:12)
--- NOTE | 2016-11-27 08:15 | HHI.DCPOC ---
Discharge Care Plan Diagnosis: (1) S/P primary low transverse Your Health Problems Are: delivery Report Symptoms to Your Doctor -Temperature above 100.5 degrees -Redness, of incision or excessive or foul smelling drainage -Unusual pain or calf pain -Increased vaginal bleeding -Painful or difficulty urinating -Feelings of extreme sadness or anxiety after 2 weeks Goals to Promote Your Health * To prevent worsening of your condition and complications * To maintain your health at the optimal level Directions to Meet Your Goals Take your medications as prescribed Follow your dietary instruction Follow activity as directed Ensure plenty of rest for recovery Drink fluids for hydration Keep your appointments as scheduled Take your immunizations and boosters as scheduled If your symptoms worsen call your PCP, if no PCP go to Urgent Care Center or Emergency Room Smoking is Dangerous to Your Health. Avoid second hand smoke Call the 24-hour crisis hotline for domestic abuse at Usha Aguilar MD Nov 27, 2016 08:15
[2016-11-27 09:21] LABS: OBMETHADONE UR NEG (NEG); PHENCYCLIDINE URINE NEG (NEG)
[2016-11-27 09:22] LABS: BATH SALTS (MDPV) UR NEG (NEG); ECSTASY (MDMA) UR NEG (NEG); GABAPENTIN UR NEG (NEG); HEROIN (6-ACETYLMORPHINE) UR NEG (NEG); HYDROMORPHONE U NEG (NEG); K2 SPICE UR NEG (NEG)
== END 2016-11-27 12:38 | disposition home or self-care (01) | DRG 766 ==
LOC: H2EB 19:47 → H1EA 11-24 13:38
PROVIDERS: ADMIT Obstetrics & Gynecology; ATTEND Obstetrics & Gynecology
PROC: 3E0P7GC Introduction of Other Therapeutic Substance into Female Reproductive, Via Natural or Artificial Opening (ICD-10-PCS; 2016-11-23)
PROC: 10907ZC Drainage of Amniotic Fluid, Therapeutic from Products of Conception, Via Natural or Artificial Opening (ICD-10-PCS; 2016-11-23)
PROC: 10D00Z1 Extraction of Products of Conception, Low, Open Approach (ICD-10-PCS; principal; 2016-11-24)
PROC: 3E0S3CZ (ICD-10-PCS; 2016-11-24)
PROC: 00HU33Z Insertion of Infusion Device into Spinal Canal, Percutaneous Approach (ICD-10-PCS; 2016-11-24)
DX: O26.893 Other specified pregnancy related conditions, third trimester (principal); F32.9 Major depressive disorder, single episode, unspecified; O65.9 Obstructed labor due to maternal pelvic abnormality, unspecified; O62.1 Secondary uterine inertia; O99.824 Streptococcus B carrier state complicating childbirth; O98.32 Other infections with a predominantly sexual mode of transmission complicating childbirth; A60.00 Herpesviral infection of urogenital system, unspecified; O99.324 Drug use complicating childbirth; F12.90 Cannabis use, unspecified, uncomplicated; O99.343 Other mental disorders complicating pregnancy, third trimester; O99.02 Anemia complicating childbirth; D64.9 Anemia, unspecified; Z37.0 Single live birth; Z3A.40 40 weeks gestation of pregnancy
CPT/HCPCS: 59025; 80307; 81001; 82805; 85025; 86850; 86900; 86901; 87086; 88307; G0481; J0690; J2274; J2370; J2405; J2540; J2590; J3010; J7120